=== PATIENT | female | born 1995 | race Caucasian/White ===

== ENCOUNTER 2018-09-06 15:19 | Emergency (ER) | payer OTHER ==
--- NOTE | 2018-09-06 16:07 | EDPHY ---
General Time Seen by Provider: 09/06/18 16:07 Narrative: CLINICAL IMPRESSION: Left foot laceration ASSESSMENT/PLAN: Patient is a 23-year-old female with no significant medical history, presents to the emergency department after cutting her foot on a dirty piece of metal just prior to arrival. Physical examination reveals a very superficial 1 cm laceration on the left mid foot pad, not actively bleeding. It is not gaping in nature, there was no evidence of deep structure involvement or bony involvement. I did not feel benefit to close this with sutures as it was superficial, well-approximated and non gaping. Patient's feet were extremely dirty. This wound was cleansed and dressed. Wound care instructions were discussed with the patient. In light of very dirty feet will treat prophylactically with Keflex. Her tetanus was updated in the emergency department. She does not have a PCP, I provided a referral. Return precautions discussed. DIFFERENTIAL DIAGNOSIS: Includes but not limited to laceration of tendon or vascular structure, underlying fracture, laceration with retained FB CHIEF COMPLAINT: Laceration HPI: Patient is a 23-year-old female with no significant medical history who presents to the emergency department with complaints of a foot laceration after she cut it on a 30 piece of metal at her house. Patient reports there air conditioning unit had fallen off the wall, there was a small piece of metal sticking out which she accidentally stepped on. Patient did experience pain however there was no significant bleeding. She is not up-to-date on her tetanus status. She denies any other injury or complaint. PAST MEDICAL HISTORY: Denies Pertinent Past Surgical History: Denies Social History: Current smoker, denies illicit drug use REVIEW OF SYSTEMS: Review of systems negative except for HPI. PHYSICAL EXAM: General Appearance: Well-appearing, no acute distress. Neurological: Alert and oriented x 3, cranial nerves 2-12 grossly intact with no focal deficit. Skin: Warm and dry. See below Musculoskeletal: Left foot reveals a 1 cm laceration on the mid pad of the midfoot. There is very mild associated tenderness to palpation. There is no bony tenderness to palpation. It is superficial and non gaping. Feet are rather soiled. Two point discrimination is intact distally. Dorsalis pedis is 2+. Left lower extremity is otherwise unremarkable. MEDICAL DECISION MAKING: Patient was seen independently. Secondary supervising physician at time of evaluation was Dr. Morrissey, he did not evaluate this patient. Diagnosis: Left foot laceration. Summary: See Assessment and Plan. Clinical lab tests: Not applicable. Independent visualization of images, tracing, or specimens not applicable. Decision to obtain medical records or history from someone other than the patient: No Disposition: Stable, discharge. - History Smoking Status: Current every day smoker - Objective Vital Signs: Initial Vital Signs Temperature (C) 36.9 C 09/06/18 15:27 Heart Rate 71 09/06/18 15:27 Respiratory Rate 16 09/06/18 15:27 Blood Pressure 143/86 H 09/06/18 15:27 O2 Sat (%) 96 09/06/18 15:27 O2 Delivery Mode Room Air Allergies/Adverse Reactions: amoxicillin Allergy (Verified 09/06/18 15:27) Home Medications: Medication Instructions Recorded Cephalexin [Keflex (*)] 500 mg PO Q6H 5 Days cap 09/06/18 Departure - Departure Disposition: Home, Routine, Self-Care Clinical Impression: Laceration of foot Qualifiers: Encounter type: initial encounter Laterality: left Qualified Code(s): S91.312A - Laceration without foreign body, left foot, initial encounter Condition: Good Instructions: Laceration (ED) Additional Instructions: DISCHARGE INSTRUCTIONS FROM YOUR PROVIDER Thank you for visiting our emergency department today. Please keep in mind that discharge from the emergency department does not mean that there is nothing wrong - it simply means that we have not identified an emergency condition that requires further evaluation or treatment in the hospital. You should always plan to follow up with primary care for re-evaluation of your condition in the next 2-3 days. Your tetanus status was updated today. Keep wound clean and dry for 24 hours. Then remove dressing, clean at least twice daily or when soiled with soap and water, apply antibiotic ointment and dressing. Do not soak the wound. You have been prescribed antibiotics for prophylaxis. Please take as directed. You may want to take a probiotic as antibiotic use can cause diarrhea. For pain control: You may take Tylenol, I recommend 500-1000 mg every 6-8 hours as needed. Take with food and a full glass of water. Stop taking if this is upsetting you stomach. Do not exceed 4000 mg in a 24 hr period. You may also take ibuprofen, recommend 400 mg every 6 hr. Take with food and a full glass of water. Stop taking if this upsets your stomach. Do not exceed 2400 mg in a 24 hr period. Return for signs of wound infection ie: redness, swelling, drainage, foul odor, red streaks, fever, chills, pain, bleeding, if the wound opens or for any other new, worsening or worrisome symptoms. People present with illnesses and injuries in different ways, and it is always possible that we have missed something. Again, thank you for choosing our emergency department. We hope that you feel better. Referrals: Lenora Billy MD [Medical Doctor] - As per Instructions Prescriptions: Cephalexin [Keflex (*)] 500 mg PO Q6H 5 Days cap
[2018-09-06] MEDS ORDERED: TDAP ADULT 0.5 ML INJ (BOOSTRIX) IM ONE (16:16)
[2018-09-06 16:39] VITALS: BP 135/78
== END 2018-09-06 17:02 | disposition home or self-care (01) ==
DX: S91.312A Laceration without foreign body, left foot, initial encounter (principal); W25.XXXA Contact with sharp glass, initial encounter; Y92.008 Other place in unspecified non-institutional (private) residence as the place of occurrence of the external cause; Z23 Encounter for immunization